=== PATIENT | female | born 1935 | race Caucasian/White ===

== ENCOUNTER → 2021-02-06 | Outpatient (CLI) | payer MEDICARE, OTHER ==
[~2021-02-06] MED LIST: AMLODIPINE BESY10 MG PO; CETIRIZINE 10 MG; COLACE100 MG PO; CYMBALTA30 MG PO; LOSARTAN POTAS100 MG PO; LOVENOX60 MG/0.6 SC; METOPROLOL SUCC50 MG PO; NORCO 7.5-3251 EACH PO; PRILOSEC40 MG PO; REGADENOSON 0.4 MG/5 ML SYR IV ONE; Z MELATONIN PO; Z.0.ACEBUTOLOL HCL20 PO; Z.0.CYMBALTA60 MG PO; Z.0.EVISTA60 MG PO; Z.0.OMEPRAZOLE40 MG PO; Z.0.SIMVASTATIN20 MG PO; Z.2.LISINOPRIL-HCT1 PO; ZOCOR20 MG PO; [UNRECOGNIZED DRUG - OTHER]
== END ==
LOC: NM 11:28
PROVIDERS: ATTEND Internal Medicine Cardiovascular Disease
DX: R06.02 Shortness of breath (principal); I11.0 Hypertensive heart disease with heart failure; R94.31 Abnormal electrocardiogram [ECG] [EKG]
CPT/HCPCS: 71046; 78452; 93017; A9502; J2785